=== PATIENT | female | born 1945 | race Caucasian/White ===

== ENCOUNTER → 2017-04-16 | Outpatient (CLI) | payer MEDICARE, BC ==
[~2017-04-16] MED LIST: ALBUTEROL0.83 MG/ML IH; ATROVENT I0.2 MG/1 M IH; COMBIRESP IH; GLUCOTROL XL10 MG PO; JANUVIA 100MG100 MG PO; LASIX 20MG TABL20 MG PO; LOTENSIN HCT 51 TAB PO; PROTONIX 40MG T40 MG PO; RT SPIRIVA18 MCG IH; WELLBUTRIN XL300 M1 PO
== END ==
LOC: ZCOL.LAB 09:59
DX: H60.92 Unspecified otitis externa, left ear (principal)

== ENCOUNTER → 2018-12-31 | Outpatient (CLI) | payer MEDICARE, BC | LOC: MC.RAD 08:14 | DX: Z12.31 Encounter for screening mammogram for malignant neoplasm of breast (principal) ==

== ENCOUNTER → 2019-01-28 | Outpatient (CLI) | payer MEDICARE, BC ==
[~2019-01-28] VITALS: Ht 165.1 cm; Wt 84.1 kg
[~2019-01-28] MED LIST changes: +DALIRESP500 MCG PO; +LEVEMIR FLEX100 U/ML SQ; +LOTENSIN40 MG PO; +WELLBUTRIN XL150 MG PO
[2019-01-28 09:57] VITALS: BP 152/88; PULSE 108
[2019-01-28 10:40] VITALS: BP 131/47; PULSE 110
== END ==
LOC: COL.RAD 09:30
DX: D11.0 Benign neoplasm of parotid gland (principal)
CPT/HCPCS: 32108